=== PATIENT | female | born 1975 | race Caucasian/White ===

== ENCOUNTER 2017-03-23 18:01 | Inpatient (IN) | payer MEDICAID ==
[~2017-03-23] VITALS: Ht 165.1 cm; Wt 78.2 kg
[~2017-03-23 18:01] MED LIST: ACETAMINOPHEN325 MG PO; ATIVAN0.5 MG PO; ATIVAN1 MG PO; BENTYL 20 MG TA20 MG PO; CELEXA20 MG PO; CELEXA40 MG PO; CLOMIPRAMINE HC25 MG PO; COLACE100 MG PO; CYCLOBENZAPRINE10 MG PO; DEXILANT60 MG PO; DULCOLAX10 MG/SUPP RC; HYDROCODONE-APA1 TAB PO; LINZESS145 MCG PO; PERCOCET 10/3251 TA1 PO; PHENERGAN25 M1 PO; PRILOSEC20 MG PO; PROCTOFOAM-HC 110 GM RC; VALIUM5 MG PO; ZANTAC150 MG PO
[2017-03-23 19:12] LABS: BASOPHILS 0.6 % (0-2); EOSINOPHILS 2.5 % (0-7); HEMATOCRIT 44.8 % (36.0-48.0); HEMOGLOBIN 15.2 g/dL (12-16); IMMATURE GRANULOCYTES 0.3 % (0-5); LYMPHOCYTES 32.9 % (15-50); MCH 30.5 pg (26.0-34.0); MCHC 33.9 g/dL (31.0-37.0); MEAN PLATELET VOLUME 10.7 fL (7.4-10.4); MONOCYTES 9.1 % (2-11); NEUTROPHILS 54.6 % (40-80); PLATELET COUNT 255 10x3/uL (130-400); RBC 4.98 10x6/uL (4.00-5.40); RDW 13.2 % (11.5-14.5); WBC 6.8 10x3/uL (4.8-10.8)
[2017-03-23 19:27] LABS: HCG SERUM NEGATIVE (NEGATIVE)
[2017-03-23 19:35] LABS: ALBUMIN 3.9 g/dL (3.4-5.0); ALKALINE PHOSPHATASE 145 U/L (46-116); ALT (SGPT) 98 U/L (10-68); BILIRUBIN - TOTAL 0.24 mg/dL (0.2-1.3); CALC OSMOLALITY 278 mosm/kg (275-300); CALCIUM 9.4 mg/dL (8.5-10.1); CARBON DIOXIDE 29.6 mmol/L (21.0-32.0); CHLORIDE - SERUM 105 mmol/L (98-107); CREATININE - SERUM 0.8 mg/dL (0.6-1.3); GLUCOSE 92 mg/dL (74-106); POTASSIUM - SERUM 3.8 mmol/L (3.5-5.1); PROTEIN - SERUM 7.3 g/dL (6.4-8.2); SODIUM 141 mmol/L (136-145); UREA NITROGEN 6 mg/dL (7-18); eGFR NON AFRICAN AMERICAN 85 mL/min (90-120)
--- NOTE | 2017-03-23 22:04 | NUR ---
CALLED ER TO GET REPORT FROM THUAN, LEFT MESSAGE FOR HER TO CALL WHEN AVAILABLE.
--- NOTE | 2017-03-23 22:44 | NUR ---
SHI POULTRY GRADER SET UP, EXPLAINED USE OF PUMP TO PT, PT REPEATED UNDERSTANDING.
--- NOTE | 2017-03-23 22:44 | NUR ---
RECIEVED FROM ER TO ROOM 2136 VIA WC. PT A&O. VITALS STABLE. IV TO RIGHT FOREARM WITH D5 LR AT 125. SITE CLEAN AND DRY. HISTORY AND MED REC OBTAINED. PT STATES THAT SHE HAS BEEN VOMITING FOR THE LAST COUPLE OF DAYS AND HAS A HISTORY OF BOWEL BLOCKAGES. C/O ABD PAIN, RATES PAIN AT A 6 ON PAIN SCALE. INFORMED PT THAT SHE HAS A DILAUDID GARAGE LABORER ORDERED AND THAT I WILL BE BACK SHORTLY TO SET UP THE PUMP.
[2017-03-23] MEDS ORDERED: NAPROXEN375 M1 PO (22:46)
[2017-03-23] MEDS ORDERED: LIPITOR20 MG PO (22:47)
[2017-03-23] MEDS ORDERED: CYCLOBENZAPRINE5 MG PO (22:47)
[2017-03-23] MEDS ORDERED: MOBIC7.5 MG PO (22:48)
[2017-03-23] MEDS ORDERED: EFFEXOR75 MG PO (22:48)
[2017-03-23] MEDS ORDERED: ALENDRONATE SOD70 MG PO (22:49)
[2017-03-23] MEDS ORDERED: BISACODYL5 MG PO (22:50)
[2017-03-23 23:49] VITALS: BP 111/64; BMI 27.5
[2017-03-24] VITALS: BP 111/64
--- NOTE | 2017-03-24 02:22 | NUR ---
ZOFRAN 4 MG GIVEN FOR C/O NAUSEA. WILL CONT TO MONITOR.
[2017-03-24 04:00] VITALS: BP 95/53
--- NOTE | 2017-03-24 04:23 | NUR ---
RESTING WITH EYES CLOSED, RESPERATIONS EVEN, NO S/S DISTRESS NOTED.
--- NOTE | 2017-03-24 05:45 | NUR ---
WILL CONTINUE WITH PLAN OF CARE, CALL LIGHT IN REACH.
[2017-03-24 07:56] VITALS: BP 97/52
--- NOTE | 2017-03-24 08:44 | NUR ---
DISCONNECTED PT FROM IV FLUIDS FOR HER ABD. SCAN. PT LEAVING NOW WITH TECH. WILL CPOC.
--- NOTE | 2017-03-24 09:14 | NUR ---
PT BACK FROM SCAN AND RECONNECTED TO HER R.FA PIV WITH D5 LR @125ML/HR WITH CLIPPER AND TURNER DILAUDID WELL. PT DENIES ANY CURRENT NEEDS AND AWAITING TO HEAR RESULTS. WILL CPOC.
--- NOTE | 2017-03-24 12:21 | NUR ---
PT SITTING UP IN BED RESTING QUIETLY TRYING TO EAT HER FULL LIQUID DIET TRAY. HAS SLIGHT NAUSEA STILL BUT CURRENTLY FEELS "OKAY" DENIES ANY CURRENT NEEDS. WILL CPOC.
[2017-03-24 12:30] VITALS: Ht 165.1 cm; Wt 78.2 kg
[2017-03-24 12:38] VITALS: BP 92/56
--- NOTE | 2017-03-24 14:00 | NUR ---
PT C/O NAUSEA REQUESTING AND PROVIDED WITH PRN ZOFRAN VIA R.FA PIV, DRSG CDI AND SWAB CAPS IN USE. PT HAS SLIGHT CRAMPING ABDOMINAL PAIN BUT STATES PAIN IS CONTROLLED WITH DILAUDID PLATE WORKER HELPER PUMP. PT DENIES ANY FURTHER NEEDS AT THIS TIME CL IN REACH, BED IN LOWEST, SIDE RAILS X2. WILL CPOC.
[2017-03-24 15:42] VITALS: BP 98/60
--- NOTE | 2017-03-24 15:43 | NUR ---
Patient Name: JAN PATRICK Admission Status: ER Accout number: [id number] Admission Date: 03-23-2017 : [birth year] Admission Diagnosis:UNSPECIFIED INTESTINAL OBSTRUCTION Attending: TJ Current LOS: 1 Anticipated DC Date: 03-27-2017 Planned Disposition: Home Primary Insurance: MEDICAID [place] Discharge Planning Comments: Cm met with patient to complete initial dc planning assessment. Patient gave consent to complete assessment. Patient lives in a one story home with no steps to enter the home. She lives with her significant other. She is independent in her care at home. She does not have any DME nor community resources at home. She plans to return home and denied dc needs at this time. Cm will continue to follow and will assist with dc plans/needs. Chitra Hernandez RN, [facility] [phone] Is the patient Alert and Oriented? Yes * How many steps to enter\exit or inside your home? none * PCP Dr. Mccormick from [place] * Pharmacy [facility] near the [facility] * Preadmission Environment Home with Family * ADLs Independent * Equipment None * List name and contact numbers for known caregivers / representatives who currently or will assist patient after discharge: Ramon Paris [phone] * Community resources currently utilized None * Additional services required to return to the preadmission environment? No * Can the patient safely return to the preadmission environment? Yes * Has this patient been hospitalized within the prior 30 days at any hospital? No
[2017-03-24 20:21] VITALS: BP 117/47
--- NOTE | 2017-03-24 21:53 | NUR ---
INITIAL ROUNDS COMPEKTED AT 1915 HRS. PT STATED AT THAT TIME DILAUDID CUTTING TABLE OPERATOR CONTROLLING PAIN. ASSESSMENT COMPLETED AT 1949 HRS. VSS. IV TO INNER RFA WITH D5LR AT 50CC/HR. IV PATENT. DILAUSIS CUTTING TABLE OPERATOR ITH 0.2MG Q10 MINUTES WITH 4MG Q4HR LO. LUNGS CTA. UP AD LILLIAM. PM MEDS GIVEN PER ORDERS. PT CURRENTLY WATCHING TV. WILL CONTINUE TO MONITOR. SR UP X2, CALL LIGHT WITHIN RAC JOSEFINA FAMILY MEMBER AT BEDSIDE.
--- NOTE | 2017-03-24 23:55 | NUR ---
PT RESTING WITH EYES CLOSED. RESP EVEN AND REGULAR. SR UP X2, CALL LIGHT WITHIN REACH.
[2017-03-25 00:28] VITALS: BP 106/57
--- NOTE | 2017-03-25 01:44 | NUR ---
Sudhakar NIELSEN PRODUCT MARKETING ANALYST RETURNS CALL. INFORMED NORCO NOT HELPING SURGICAL PAIN. NEW ORDERS RECEIVED AND NOTED.
--- NOTE | 2017-03-25 03:17 | NUR ---
PT RESTING WITH EYES CLOSED. RESP EVEN AND REGULAR. SR UP X2, CALL LIGHT WITHIN REACH.
[2017-03-25 04:13] VITALS: BP 108/60
--- NOTE | 2017-03-25 04:50 | NUR ---
PT RESTING WITH EYES CLOSED. RESP EVEN AND REGULAR. SR UP X2, CALL LIGHT WITHIN REACH.
--- NOTE | 2017-03-25 06:02 | NUR ---
VSS THROUGHOUT NIGHT. PT STATED GLASS EMBOSSER CONTROLLED PAIN. NEEDS MET; WILL CONTINUE TO MONITOR.
--- NOTE | 2017-03-25 08:24 | NUR ---
AM ROUNDS - PT APPEARS TO BE SLEEPING ON RIGHT SIDE. PT ON RA. RIGHT ARM D5 LR @ 50. DILODID FAST FOOD FRY COOK. WILL CONTINUE TO MONITOR.
[2017-03-25 08:36] VITALS: BP 124/61
[2017-03-25 11:28] VITALS: BP 108/77
[2017-03-25 17:04] VITALS: BP 100/57
--- NOTE | 2017-03-25 18:16 | NUR ---
PM NOTE - PT APPEARS TO BE SLEEPING ON RIGHT SIDE. EQUAL AND NON LABORED BREATHS.
[2017-03-25 20:32] VITALS: BP 110/57
--- NOTE | 2017-03-25 21:57 | NUR ---
INITIAL ROUNDS COMPLETED AT 1914 HRS. PT DENIED ANY DISCOMFORT. ASSESSMENT COMPLETED AT 1954 HRS. VSS. IV TO RFA WITH D5LR AT 50CC/HR AND DILAUDID PHILOSOPHY INSTRUCTOR 0.2MG Q 10 MINUTES WITH 4MG/4HR LOCK OUT. IV PATENT. LUNGS CTA. ACTIVE BOWEL SOUNDS NOTED. PT STATES SHE IS PASSING GAS BUT NO BOWEL MOVEMENT YET. PM MEDS GIVEN. PT CURRENTLY WATCHING TV. WILL CONTINUE TO MONITOR. S RUP X2,CALL LIGHT WITHIN REACH.
--- NOTE | 2017-03-25 23:59 | NUR ---
PT RESTING WITH EYES CLOSED. RESP EVEN AND REGULAR. SR UP X2, CALL LIGHT WITHIN REACH.
[2017-03-26] VITALS (7 sets, daily range): BP systolic 100–122; BP diastolic 59–79
--- NOTE | 2017-03-26 02:32 | NUR ---
PT WOKE TO VERBAL STIMULI. DENIED ANY DISCOMFORT. IV REGLAN GIVEN SIVP. YL HUNG. WILL CONTINUE TO MONITOR. SR UP X2, CALL LIGHT WITHIN REACH.
--- NOTE | 2017-03-26 04:46 | NUR ---
PT AWAKE; DENIES ANY DISCOMFORT. WILL CONTINUE TO MONITOR.
--- NOTE | 2017-03-26 06:04 | NUR ---
VSS THROUGHOUT NIGHT. PT STATED DILAUDID RISK AND COMPLIANCE ANALYTICS DIRECTOR CONTROLLED PAIN. NEEDS MET; WILL CONTINUE TO MONITOR.
--- NOTE | 2017-03-26 08:18 | NUR ---
AM ROUNDING DONE WITH PATIENT APPEARING TO BE RESTING ON LEFT SIDE, RESP ARE EVEN AND NON LABORED. COSTUMED CHARACTER DILAUDID INFUSING, PAIN MEDICATION HISTORY CLEARED WITH MYSELF AND TITI JENKINS AND PLACED IN THE COSTUMED CHARACTER FLOWSHEET. LR INFUSING ALSO AT 50 CC/HR TO RIGHT FA. ON ROOM AIR. WILL MONITOR.
[2017-03-26 11:53] LABS: BASOPHILS 0.4 % (0-2); EOSINOPHILS 2.3 % (0-7); HEMATOCRIT 38.1 % (36.0-48.0); HEMOGLOBIN 12.3 g/dL (12-16); LYMPHOCYTES 23.5 % (15-50); MCH 29.6 pg (26.0-34.0); MCHC 32.3 g/dL (31.0-37.0); MCV 91.8 fL (80.0-100.0); MEAN PLATELET VOLUME 10.2 fL (7.4-10.4); MONOCYTES 5.9 % (2-11); NEUTROPHILS 67.9 % (40-80); RBC 4.15 10x6/uL (4.00-5.40); RDW 13.1 % (11.5-14.5); WBC 5.2 10x3/uL (4.8-10.8)
[2017-03-26 11:56] LABS: PLATELET COUNT 180 10x3/uL (130-400)
[2017-03-26 12:06] LABS: CALC OSMOLALITY 280 mosm/kg (275-300); CALCIUM 8.4 mg/dL (8.5-10.1); CARBON DIOXIDE 32.1 mmol/L (21.0-32.0); CHLORIDE - SERUM 108 mmol/L (98-107); CREATININE - SERUM 0.8 mg/dL (0.6-1.3); GLUCOSE 88 mg/dL (74-106); MAGNESIUM - SERUM 1.8 mg/dL (1.8-2.4); POTASSIUM - SERUM 3.8 mmol/L (3.5-5.1); SODIUM 143 mmol/L (136-145); UREA NITROGEN 4 mg/dL (7-18); eGFR NON AFRICAN AMERICAN 85 mL/min (90-120)
--- NOTE | 2017-03-26 16:49 | NUR ---
PM NOTE - PT SITTING UP IN THE BED READING A MAGAZINE WAITING ON HER DINNER TRAY. NO NEEDS AT THIS TIME. WILL CONTINUE TO MONITOR.
--- NOTE | 2017-03-26 20:18 | NUR ---
INITIAL ROUNDS COMPLETEDA T 191 RHS. PT RESTING WITH EYES CLOSED. RESP EVEN AND REGULAR. ASSESSMENT COMPLETED AT 1935 HRS. IV TO R FA WITH D5LR AT 50CC/HR AND DILAUDID ASSOCIATE FINANCIAL ANALYST 0.2MG/Q10 MIN WITH 4MG Q4HR LO. IV SITE SLIGHTLY TENDER TO TOUCH. PT REFUSES OFFER TO RSTART IV. LUNGS CTA. WILL CONTINUE TO MONITOR. SR UP X2, CALL LIGHT WITHIN REACH.
--- NOTE | 2017-03-26 22:08 | NUR ---
BRUNILDA CHAVEZ. PT DENIES ANY DISCOMFORT. WILL CONTINUE TO MONITOR.
--- NOTE | 2017-03-26 23:40 | NUR ---
PT RESTING WITH EYES CLOSED. RESP EVEN AND REGULAR. SR UP X2, CALL LIGHT WITHIN REACH.
--- NOTE | 2017-03-27 01:48 | NUR ---
PT RESTING WITH EYES CLOSED. RESP EVEN AND REGULAR. SR UP X2, CALL LIGHT WITHIN REACH.
--- NOTE | 2017-03-27 04:19 | NUR ---
PT RESTIG WITH EYES CLOSED. RESP EVEN AND REGULAR. SR UP X2, CALL LIGHT WITHIN REACH.
--- NOTE | 2017-03-27 05:51 | NUR ---
VSS THROUGHOUT NIGHT. PT DENIES ANY DISCOMFORT. NEEDS MET; WILL CONTINUE TO MONITOR.
[2017-03-27 06:05] VITALS: BP 105/64
[2017-03-27 06:16] LABS: BASOPHILS 0.6 % (0-2); EOSINOPHILS 4.2 % (0-7); HEMATOCRIT 37.6 % (36.0-48.0); HEMOGLOBIN 12.3 g/dL (12-16); IMMATURE GRANULOCYTES 0.3 % (0-5); LYMPHOCYTES 40.6 % (15-50); MCH 29.5 pg (26.0-34.0); MCHC 32.7 g/dL (31.0-37.0); MCV 90.2 fL (80.0-100.0); MEAN PLATELET VOLUME 10.6 fL (7.4-10.4); MONOCYTES 10.1 % (2-11); NEUTROPHILS 44.2 % (40-80); PLATELET COUNT 196 10x3/uL (130-400); RBC 4.17 10x6/uL (4.00-5.40)
[2017-03-27 06:26] LABS: WBC 3.6 10x3/uL (4.8-10.8)
[2017-03-27 06:47] LABS: CALC OSMOLALITY 285 mosm/kg (275-300); CALCIUM 8.3 mg/dL (8.5-10.1); CARBON DIOXIDE 31.2 mmol/L (21.0-32.0); CHLORIDE - SERUM 108 mmol/L (98-107); CREATININE - SERUM 0.8 mg/dL (0.6-1.3); GLUCOSE 103 mg/dL (74-106); MAGNESIUM - SERUM 1.8 mg/dL (1.8-2.4); POTASSIUM - SERUM 3.5 mmol/L (3.5-5.1); SODIUM 145 mmol/L (136-145); UREA NITROGEN 4 mg/dL (7-18); eGFR NON AFRICAN AMERICAN 85 mL/min (90-120)
[2017-03-27 08:28] VITALS: BP 122/75
[2017-03-27] MEDS ORDERED: LEVAQUIN750 MG PO (12:30)
[2017-03-27] MEDS ORDERED: PROTONIX40 MG PO (12:30)
[2017-03-27] MEDS ORDERED: FLAGYL500 MG PO (12:31)
[2017-03-27 13:42] VITALS: BP 133/87
--- NOTE | 2017-03-27 15:18 | NUR ---
ALERT AND ORIENTED X4. SITTING UP IN BED. DISCHARGE INSTRUCTIONS GIVEN VERBALLY AND WRITTEN. DISCHARGE PAPERS SIGNED ON CHART. DC RT FA IV TIP INTACT. AMBULATES OUTSIDE PER PATIENT REQUEST. REMAINS FREE FROM INJURY.
== END 2017-03-27 15:20 | disposition home or self-care (01) | DRG 392 ==
LOC: D.ER 18:01 → D.M2 21:34
PROVIDERS: Emergency Medicine; Surgery; ADMIT Surgery
DX: K52.9 Noninfective gastroenteritis and colitis, unspecified (principal); K56.60 Unspecified intestinal obstruction; K21.9 Gastro-esophageal reflux disease without esophagitis; F17.200 Nicotine dependence, unspecified, uncomplicated; K63.5 Polyp of colon

== ENCOUNTER 2017-04-07 07:24 | Day surgery (SDC) | payer MEDICAID ==
[~2017-04-07] VITALS: Ht 165.1 cm; Wt 72.7 kg
--- NOTE | ~2017-04-07 | OP ---
PATIENT NAME: JAN EDWARDS MEDICAL RECORD: [id number] :79 LOCATION:D.OPS ADMISSION DATE: SURGEON: ANUJA BOYKIN MD DATE OF OPERATION: 04/07/2017 PREOPERATIVE DIAGNOSES: 1. Gastroesophageal reflux disease. 2. Chronic abdominal pain. 3. Fibromyalgia. 4. Depression. 5. Anxiety. POSTOPERATIVE DIAGNOSES: 1. Gastroesophageal reflux disease. 2. Chronic abdominal pain. 3. Fibromyalgia. 4. Depression. 5. Anxiety. PROCEDURE: EGD with biopsy. SURGEON: Anuja Boykin MD. REPORT OF PROCEDURE: An Olympus endoscope was advanced through the patient's mouth and esophagus. We were able to traverse the pylorus and enter the duodenum. There are no signs of any masses, lesions or ulcerations in the duodenum. As we pulled back, we took a biopsy of the antrum of the stomach and sent this off for permanent specimen. There was just some mild gastritis around the antrum of the stomach, but no signs of any masses, lesions or ulcerations. Retroflexed view showed the patient's previous TIF was intact with few of the clips still easily visible. There was still some laxity of the tissue around the esophagus that could be seen with respirations. No sign of a hiatal hernia was noted. At this point, the endoscope was pulled back out of the stomach and into the distal esophagus. There were some inflammatory changes and ulceration present consistent with reflux esophagitis. A biopsy was taken in the distal aspect of the esophagus. At this point, the insufflation was removed followed by the scope. We saw no other masses or lesions in the esophagus as we pulled back. COMPLICATIONS: None. CONDITION: Stable. ANESTHESIA: TIVA. BLOOD LOSS: Minimal. TRANSINT:[id number] Voice Confirmation ID: [id number] DOCUMENT ID: [id number] OPERATIVE REPORT [id number] JAN EDWARDS ANUJA BOYKIN MD CC: [id number] DICTATION DATE: 04/07/17910 FOOD WRITER: 04/07/17 1133 [facility] 04/07/17 [facility] [address] [place] [address]
[~2017-04-07 07:24] MED LIST changes: +ALENDRONATE SOD70 MG PO; +BISACODYL5 MG PO; +CYCLOBENZAPRINE5 MG PO; +EFFEXOR75 MG PO; +FLAGYL500 MG PO; +LEVAQUIN750 MG PO; +LIPITOR20 MG PO; +MOBIC7.5 MG PO; +NAPROXEN375 M1 PO; +PROTONIX40 MG PO
[2017-04-07 08:30] VITALS: BP 103/76; Ht 165.1 cm; Wt 72.7 kg
--- NOTE | 2017-04-07 09:44 | NUR ---
0930-RECD FROM LAB.
[2017-04-07 09:47] LABS: HEMATOCRIT 42.8 % (36.0-48.0); MCH 29.5 pg (26.0-34.0); MCHC 32.7 g/dL (31.0-37.0); MCV 90.3 fL (80.0-100.0); MEAN PLATELET VOLUME 10.9 fL (7.4-10.4); RBC 4.74 10x6/uL (4.00-5.40); WBC 5.4 10x3/uL (4.8-10.8)
--- NOTE | 2017-04-07 10:30 | NUR ---
IV OUT INTACT. DISCHARGE INSTRUCTIONS GIVEN, VOICED UNDERSTANDING. DC HOME VIA WC.
== END 2017-04-07 10:30 | disposition home or self-care (01) ==
LOC: D.OPS 07:24
PROVIDERS: Anesthesiology
DX: K29.50 Unspecified chronic gastritis without bleeding (principal); K21.0 Gastro-esophageal reflux disease with esophagitis; G89.29 Other chronic pain; R10.9 Unspecified abdominal pain; M79.7 Fibromyalgia; F32.9 Major depressive disorder, single episode, unspecified; F41.9 Anxiety disorder, unspecified

== ENCOUNTER → 2017-04-11 09:34 | Outpatient (CLI) | payer MEDICAID ==
[2017-04-07 08:30] VITALS: BMI 26.6
== END | disposition home or self-care (01) ==
LOC: D.RAD 09:34
DX: K21.9 Gastro-esophageal reflux disease without esophagitis (principal)

== ENCOUNTER 2017-09-09 19:52 | Emergency (ER) | payer MEDICAID ==
[2017-04-07 08:30] VITALS: BMI 26.6
[2017-09-09 20:53] LABS: APPEARANCE CLEAR (CLEAR); BILIRUBIN NEGATIVE (NEGATIVE); COLOR YELLOW (YELLOW); GLUCOSE NEGATIVE (NEGATIVE); KETONE NEGATIVE (NEGATIVE); NITRITE NEGATIVE (NEGATIVE); PROTEIN NEGATIVE (NEGATIVE); SPECIFIC GRAVITY 1.015 (1.005-1.020); UROBILINOGEN NORMAL (NORMAL)
[2017-09-09 20:57] LABS: BACTERIA FEW /hpf (NONE SEEN); EPITHELIAL CELLS 0-5 /hpf (0-5); RED CELLS - URINE 0-5 /hpf (0-5); WHITE CELLS - URINE 0-5 /hpf (0-5)
== END 2017-09-09 21:50 | disposition home or self-care (01) ==
LOC: D.ER 19:52
PROVIDERS: Emergency Medicine
DX: N39.0 Urinary tract infection, site not specified (principal); M54.5 Low back pain; R11.2 Nausea with vomiting, unspecified; F17.200 Nicotine dependence, unspecified, uncomplicated

== ENCOUNTER 2017-11-30 14:35 | Emergency (ER) | payer MEDICAID ==
[2017-04-07 08:30] VITALS: BMI 26.6
[2017-11-30 15:29] LABS: BASOPHILS 0.7 % (0-2); EOSINOPHILS 1.5 % (0-7); HEMATOCRIT 46.5 % (36.0-48.0); HEMOGLOBIN 15.5 g/dL (12-16); IMMATURE GRANULOCYTES 0.1 % (0-5); LYMPHOCYTES 29.6 % (15-50); MCH 30.2 pg (26.0-34.0); MCHC 33.3 g/dL (31.0-37.0); MCV 90.5 fL (80.0-100.0); MEAN PLATELET VOLUME 10.3 fL (7.4-10.4); MONOCYTES 5.4 % (2-11); NEUTROPHILS 62.7 % (40-80); PLATELET COUNT 244 10x3/uL (130-400); RBC 5.14 10x6/uL (4.00-5.40); WBC 7.6 10x3/uL (4.8-10.8)
[2017-11-30 15:53] LABS: ALBUMIN 3.9 g/dL (3.4-5.0); ALKALINE PHOSPHATASE 88 U/L (46-116); ALT (SGPT) 24 U/L (10-68); BILIRUBIN - TOTAL 0.15 mg/dL (0.2-1.3); CALC OSMOLALITY 280 mosm/kg (275-300); CALCIUM 9.3 mg/dL (8.5-10.1); CARBON DIOXIDE 27.8 mmol/L (21.0-32.0); CHLORIDE - SERUM 105 mmol/L (98-107); CREATININE - SERUM 0.7 mg/dL (0.6-1.3); GLUCOSE 91 mg/dL (74-106); POTASSIUM - SERUM 3.7 mmol/L (3.5-5.1); SODIUM 142 mmol/L (136-145); UREA NITROGEN 6 mg/dL (7-18); eGFR NON AFRICAN AMERICAN > 90 mL/min (90-120)
[2017-11-30 18:20] LABS: APPEARANCE CLEAR (CLEAR); COLOR YELLOW (YELLOW); GLUCOSE NEGATIVE (NEGATIVE); KETONE NEGATIVE (NEGATIVE); NITRITE NEGATIVE (NEGATIVE); PROTEIN NEGATIVE (NEGATIVE); UROBILINOGEN NORMAL (NORMAL)
[2017-11-30 18:21] LABS: BILIRUBIN NEGATIVE (NEGATIVE)
== END 2017-11-30 20:32 | disposition home or self-care (01) ==
LOC: D.ER 14:35
PROVIDERS: Emergency Medicine
DX: R10.9 Unspecified abdominal pain (principal)

== ENCOUNTER 2017-12-29 23:47 | Emergency (ER) | payer MEDICAID ==
[2017-04-07 08:30] VITALS: BMI 26.6
== END 2017-12-30 01:30 | disposition home or self-care (01) ==
LOC: D.ER 23:47
DX: R19.7 Diarrhea, unspecified (principal); B34.9 Viral infection, unspecified; K21.9 Gastro-esophageal reflux disease without esophagitis; F17.200 Nicotine dependence, unspecified, uncomplicated

== ENCOUNTER 2018-02-06 08:17 | Outpatient (CLI) | payer MEDICAID ==
[2017-04-07 08:30] VITALS: BMI 26.6
== END 2018-02-06 10:00 ==
LOC: D.OPS 08:17
DX: K21.9 Gastro-esophageal reflux disease without esophagitis (principal)